=== PATIENT | female | born 1990 | race Caucasian/White ===

== ENCOUNTER 2017-12-30 18:36 | Emergency (ER) | payer BC ==
[2017-12-30 19:33] LABS: Bilirubin Negative (Negative); Blood, Urine Negative (Negative); Clarity CLEAR (Clear); Glucose, Urine (Dipstick) Negative (Negative); Leukocyte Negative (Negative); Nitrite Negative (Negative); Protein, Urine (Dipstick) Negative (Neg-Trace); Specific Gravity, Urine 1.024 (1.002-1.036); Urobilinogen 0.2 mg/dL (0.2-1.0); pH, Urine 5.5 (5.0-9.0)
== END 2017-12-30 20:12 | disposition home or self-care (01) ==
LOC: ERS 18:36
DX: O9A.211 Injury, poisoning and certain other consequences of external causes complicating pregnancy, first trimester (principal); M54.6 Pain in thoracic spine; V43.52XA Car driver injured in collision with other type car in traffic accident, initial encounter; Z3A.11 11 weeks gestation of pregnancy
CPT/HCPCS: 81003; 99283

== ENCOUNTER 2018-07-05 05:30 | Inpatient (IN) | payer BC ==
[2018-07-05] MEDS ORDERED: Ondansetron HCl/PF 4 MG/2 ML Vial IVP PRN ×3 (06:04→16:11)
[2018-07-05] MEDS ORDERED: NS w/ Oxytocin 10 units 500 ML IV SCH ×2 (06:04)
[2018-07-05] MEDS ORDERED: Promethazine HCl 25 MG/ML VIAL IM PRN ×2 (06:04→11:03)
[2018-07-05] MEDS ORDERED: Ibuprofen 800 MG TAB PO PRN (06:04)
[2018-07-05] MEDS ORDERED: NS / Oxytocin 40 units/1000ml 1,000 ML IV PRN (06:04)
[2018-07-05] MEDS ORDERED: Lidocaine 1% (PF) 30 ML VIAL SC PRN (06:04)
[2018-07-05] MEDS ORDERED: Butorphanol Tartrate 1 MG/ML VIAL SLOW IVP PRN (06:04)
[2018-07-05] MEDS ORDERED: Acetaminophen 500 MG TAB PO PRN (06:04)
[2018-07-05] MEDS ORDERED: Acetaminophen/Codeine 30-300mg Tablet PO PRN ×3 (06:04→16:11)
[2018-07-05] MEDS: Lactated Ringer's 1,000 ML IV SCH ×2 (06:26→10:12)
[2018-07-05 06:48] LABS: Hemoglobin 11.8 g/dL (12.0-16.0); Mean Corpuscular HGB CONC 32.8 g/dL (32.0-36.0); Mean Corpuscular Hemoglobin 28.3 pg (27.0-31.0); Mean Corpuscular Volume 86.3 fL (78.0-98.0); Mean Platelet Volume 8.7 fL (7.4-10.4); Platelet Count 258 thou/uL (130-400); RBC Distribution Width 12.7 % (11.5-14.5); Red Blood Cell (RBC) Count 4.17 mill/uL (4.20-5.40)
[2018-07-05 07:27] LABS: HBSAg Index 0.34 S/CO (0-0.99); Hep B Surf Ag Non-Reactive S/CO (NonReactive)
[2018-07-05] MEDS ORDERED: Bupivacaine 0.5% 20 ML, fentaNYL Citrate/PF 400 MCG in Sodium Chloride 0.9% 72 ML EPIDURAL SCH (10:00)
[2018-07-05 10:11] VITALS: BMI 41.5
[2018-07-05] MEDS ORDERED: Naloxone HCl 0.4 mg/ml Vial IVP PRN ×2 (11:03)
[2018-07-05] MEDS ORDERED: Eucerin (Mineral Oil/Petrolatum,White) 30 gm Jar TOP PRN (11:03)
[2018-07-05] MEDS ORDERED: Lactated Ringer's 500 ML IV PRN (11:03)
[2018-07-05] MEDS ORDERED: diphenhydrAMINE 50 MG/ML VIAL IVP PRN (11:03)
[2018-07-05] MEDS ORDERED: Acetaminophen 325 MG TAB PO PRN (11:03)
[2018-07-05] MEDS ORDERED: ePHEDrine/0.9% NaCl/PF SYRINGE 50 mg/10 ml SLOW IVP PRN (11:03)
[2018-07-05] MEDS ORDERED: Communication Order-Pharmacy FS SCH (11:15)
[2018-07-05] MEDS ORDERED: fentaNYL Citrate/PF 400 MCG, Bupivacaine 0.5% 20 ML in Sodium Chloride 0.9% 72 ML EPIDURAL SCH (11:15)
--- NOTE | 2018-07-05 13:21 | PDOC.OPDEL ---
OB Operative/Delivery Note Delivery Dr/Surgeon: Elder Pre-Delivery Diagnosis: elective induction Procedure/Post Delivery Dx: spontaneous vaginal delivery Weeks gestation: 39 Anesthesia: epidural - Findings A Sex: male - Additional Findings/Plan Placenta delivered: spontaneous Repaired Obstetrical Laceration: none Estimated blood loss: 300ml QBL pending
[2018-07-05] MEDS ORDERED: Milk Of Magnesia 30 ML UDCUP PO PRN (16:11)
[2018-07-05] MEDS ORDERED: Preparation H Ointment 28 GM TUBE PR PRN (16:11)
[2018-07-05] MEDS ORDERED: Benzocaine/Menthol 20-0.5% 60 ML CAN TOP PRN (16:11)
[2018-07-05] MEDS ORDERED: diphenhydrAMINE 25 MG CAP PO PRN (16:11)
[2018-07-05] MEDS ORDERED: Lanolin Ointment 7 GM TUBE TOP PRN (16:11)
[2018-07-05] MEDS ORDERED: NS / Oxytocin 40 units/1000ml 1,000 ML IV SCH (16:11)
[2018-07-05] MEDS ORDERED: Bisacodyl 10 MG SUPP PR PRN (16:11)
[2018-07-05] MEDS ORDERED: Adacel (T-DAP) 0.5 ML VIAL IM ONE (16:11)
[2018-07-05] MEDS: Ferrous Sulfate 325 MG TAB PO SCH (18:41)
[2018-07-05] MEDS: Ibuprofen 800 MG TAB PO SCH ×2 (18:41→20:47)
[2018-07-05] MEDS: Docusate Calcium (SURFAK) 240 MG CAP PO SCH (20:47)
[2018-07-06] MEDS: Ibuprofen 800 MG TAB PO SCH ×2 (05:42→14:06)
[2018-07-06 06:02] LABS: Hemoglobin 10.8 g/dL (12.0-16.0); Mean Corpuscular HGB CONC 32.5 g/dL (32.0-36.0); Mean Corpuscular Hemoglobin 28.2 pg (27.0-31.0); Mean Corpuscular Volume 86.8 fL (78.0-98.0); Mean Platelet Volume 8.3 fL (7.4-10.4); Platelet Count 234 thou/uL (130-400); RBC Distribution Width 12.9 % (11.5-14.5); Red Blood Cell (RBC) Count 3.82 mill/uL (4.20-5.40); White Blood Cell (WBC) Count 12.2 thou/uL (4.8-10.8)
[2018-07-06] MEDS: Docusate Calcium (SURFAK) 240 MG CAP PO SCH (08:36)
[2018-07-06] MEDS: Ferrous Sulfate 325 MG TAB PO SCH (08:37)
[2018-07-06] MEDS ORDERED: Prenatal Vitamin 1 TAB PO SCH (09:00)
--- NOTE | 2018-07-06 09:55 | PDOC.PP ---
Post Progress Note Post Day #: 1 Subjective: doing well, no concerns, no pain PO intake tolerated: yes Flatus: yes Ambulation: yes Vital Signs (12 hours) Temp Pulse Resp BP 07/06/18 05:30 98.5 F 85 20 129/69 Weight Weight 250 lb - Physical Examination General: NAD Respiratory: non-labored breathing Abdominal: no distention Fundus firm & at: below umb Extremities: negative homans (B) Skin: no rash Neurological: no gross focal deficits Psychiatric: A&Ox3, normal affect Result Diagrams: 07/06/18 05:36 Additional Labs: Post Labs Blood Type A POSITIVE 07/05/18 06:26 Hep Bs Antigen Non-Reactive S/CO (NonReactive) 07/05/18 06:26 (1) 39 weeks gestation of Code(s): Z3A.39 - 39 WEEKS GESTATION OF Status: Acute - Assessment/Plan PPD1 doing well, no concerns, desires DC home today.
[2018-07-06 10:02] VITALS: BP 127/72; TEMP 97.4
== END 2018-07-06 15:10 | disposition home or self-care (01) | DRG 807 ==
LOC: L&D 05:58 → 3SW 16:15
PROVIDERS: ADMIT Obstetrics & Gynecology; ATTEND Obstetrics & Gynecology
PROC: 10907ZC Drainage of Amniotic Fluid, Therapeutic from Products of Conception, Via Natural or Artificial Opening (ICD-10-PCS; principal; 2018-07-05)
PROC: 10E0XZZ Delivery of Products of Conception, External Approach (ICD-10-PCS; 2018-07-05)
PROC: 3E033VJ Introduction of Other Hormone into Peripheral Vein, Percutaneous Approach (ICD-10-PCS; 2018-07-05)
DX: O76 Abnormality in fetal heart rate and rhythm complicating labor and delivery (principal); Z37.0 Single live birth; Z3A.39 39 weeks gestation of pregnancy
CPT/HCPCS: 36415; 51702; 85027; 86850; 86900; 86901; 87340; J2001; J3010; J3490; J7050

== ENCOUNTER 2021-11-04 02:50 | Inpatient (IN) | payer BC ==
[2021-11-04] MEDS ORDERED: Morphine 4 MG/ML VIAL SLOW IVP PRN (03:57)
[2021-11-04] MEDS ORDERED: Sodium Chloride 0.9% 500 ML IV SCH (04:00)
[2021-11-04] MEDS ORDERED: Piperacillin/Tazobactam 3.375 GM in Sodium Chloride 0.9% 100 ML IVPB SCH (04:00)
[2021-11-04] MEDS ORDERED: Acetaminophen 500 MG TAB PO PRN (04:00)
[2021-11-04 04:03] VITALS: BMI 41.5
[2021-11-04 04:06] VITALS: TEMP 98.4
[2021-11-04] MEDS: Sodium Chloride 0.9% 1,000 ML IV SCH ×2 (04:30→16:01)
[2021-11-04] MEDS ORDERED: HYDROcodone/Acetaminophen 5/325 mg Tablet PO SCH (04:45)
[2021-11-04 06:27] LABS: #Eosinphils 0.2 thou/uL (0.0-0.7); #Lymphocytes 2.4 thou/uL (1.20-3.40); #Monocytes 1.2 thou/uL (0.11-0.59); #Neutrophils 7.7 thou/uL (1.40-6.50); %Basophils 0.2 % (0.0-1.0); %Eosinophils 1.5 % (0.0-10.0); %Lymphocytes 20.9 % (21.0-51.0); %Monocytes 10.7 % (0.0-10.0); %Neutrophils 66.7 % (42.0-75.0); Hemoglobin 11.7 g/dL (12.0-16.0); Mean Corpuscular HGB CONC 34.4 g/dL (32.0-36.0); Mean Corpuscular Hemoglobin 30.5 pg (27.0-31.0); Mean Corpuscular Volume 88.6 fL (78.0-98.0); Platelet Count 255 thou/uL (130-400); RBC Distribution Width 11.4 % (11.5-14.5); Red Blood Cell (RBC) Count 3.84 mill/uL (4.20-5.40); White Blood Cell (WBC) Count 11.6 thou/uL (4.8-10.8)
[2021-11-04 06:43] LABS: ALT (SGPT) 55 U/L (8-55); AST (SGOT) 57 U/L (5-34); Albumin 3.3 g/dL (3.5-5.0); Alkaline Phosphatase 55 U/L (40-110); Anion Gap 11 mmol/L (10-20); BUN (Urea Nitrogen) 7 mg/dL (7.0-18.7); Calc. Creatinine Clearance 235 mL/min (70-130); Carbon Dioxide 23 mmol/L (22-29); Chloride 108 mmol/L (98-107); Globulin 2.8 g/dL (2.4-3.5); Glucose 112 mg/dL (70-105); Potassium 3.5 mmol/L (3.5-5.1); Protein, Total 6.1 g/dL (6.0-8.3); Sodium 138 mmol/L (136-145)
[2021-11-04 07:32] VITALS: BP 123/78
[2021-11-04] MEDS: Piperacillin/Tazobactam 3.375 GM in Sodium Chloride 0.9% 100 ML IVPB SCH ×2 (08:23→16:08)
[2021-11-04] MEDS ORDERED: Fentanyl 100 MCG/2 ML VIAL ONE ×4 (10:48→15:13)
[2021-11-04] MEDS ORDERED: Dexmedetomidine 200 MCG/2 ML VIAL ONE (10:49)
[2021-11-04] MEDS ORDERED: HYDROmorphone 0.5 MG/0.5 ML SYRINGE ONE (10:49)
[2021-11-04] MEDS ORDERED: Bupivacaine 0.25% HCL 30 ML VIAL ONE (10:51)
[2021-11-04] MEDS ORDERED: EPINEPHrine 1 MG/ML AMP ONE (10:51)
[2021-11-04] MEDS ORDERED: Midazolam HCl 2 mg/2 ml Vial ONE (11:14)
[2021-11-04] MEDS ORDERED: Ondansetron PF 4 MG/2 ML Vial ONE (11:33)
[2021-11-04] MEDS ORDERED: PROPOFOL 200 MG/20 ML VIAL ONE (11:33)
[2021-11-04] MEDS ORDERED: Ketorolac Tromethamine 30 MG/ML VIAL ONE (11:33)
[2021-11-04] MEDS ORDERED: Rocuronium Bromide 10 MG/ML (10ML VIAL) ONE (11:33)
[2021-11-04] MEDS ORDERED: Dexamethasone 20 MG/5 ML VIAL ONE (11:33)
[2021-11-04] MEDS ORDERED: Lidocaine 1% PF 5 ML VIAL ONE (11:33)
[2021-11-04] MEDS ORDERED: Promethazine HCl 25 MG/ML VIAL IM PRN (13:40)
[2021-11-04] MEDS ORDERED: Promethazine HCl 25 MG/ML VIAL IVPB PRN (13:40)
[2021-11-04] MEDS ORDERED: Ondansetron HCl/PF 4 MG/2 ML Vial IVP PRN (13:40)
[2021-11-04] MEDS ORDERED: traMADol HCl 50 MG TAB PO PRN ×2 (14:31)
[2021-11-04] MEDS ORDERED: Ibuprofen 200 MG TAB PO PRN (14:39)
[2021-11-04] MEDS ORDERED: Acetaminophen 500 MG TAB PO SCH (18:00)
== END 2021-11-04 19:25 | disposition home or self-care (01) | DRG 418 ==
LOC: SURG A 03:51
PROVIDERS: ADMIT Internal Medicine; ATTEND Internal Medicine
PROC: 0FT44ZZ Resection of Gallbladder, Percutaneous Endoscopic Approach (ICD-10-PCS; principal; 2021-11-04)
DX: K80.00 Calculus of gallbladder with acute cholecystitis without obstruction (principal); Z68.41 Body mass index [BMI] 40.0-44.9, adult; Z20.822 Contact with and (suspected) exposure to COVID-19; I95.9 Hypotension, unspecified; D72.829 Elevated white blood cell count, unspecified; E66.9 Obesity, unspecified
CPT/HCPCS: 36415; 76705; 80053; 83690; 85025; 88304; C1713; J0171; J1100; J1170; J1885; J2250; J2405; J2543; J2704; J3010; J3490; J7030; J7050; S0020